=== PATIENT | female | born 2000 | race Caucasian/White ===

== ENCOUNTER 2023-05-22 16:24 | Emergency (ER) | payer SELFPAY ==
[2023-05-22 16:41] VITALS: BP 134/78; PULSE 92; RESP 18; TEMP 98.2; BMI 30.2
[2023-05-22] MEDS ORDERED: ACETAMINOPHEN 1000 MG/100 ML BAG IVPB ONE (17:12)
[2023-05-22] MEDS ORDERED: ONDANSETRON 4 MG/2 ML VIAL IVPUSH ONE (17:12)
[2023-05-22] MEDS ORDERED: SODIUM CHLORIDE 1,000 ML IV STA (17:12)
[2023-05-22] MEDS ORDERED: ACETAMINOPHEN INJECTION 100 ML IVPB ONE (17:38)
[2023-05-22] MEDS ORDERED: ONDANSETRON 4 MG/2 ML VIAL ONE (17:38)
[2023-05-22 17:56] LABS: BASO % 0.9 % (0-2.0); EOS % 0.2 % (0-4.5); HEMATOCRIT 38.8 % (32.4-45.2); LYMPH % 24.9 % (8-40); MCH 29.2 pg (25.7-33.7); MCHC 33.5 g/dl (32.0-36.0); MEAN CELL VOLUME 87.1 fl (80-96); MEAN PLT VOLUME 8.5 fl (7.5-11.1); MONO % 11.8 % (3.8-10.2); NEUT % 62.2 % (42.8-82.8); PLATELET COUNT 317 10^3/uL (134-434); RBC 4.45 M/mm3 (3.60-5.2); RDW 13.5 % (11.6-15.6); WHITE BLOOD COUNT 8.8 K/mm3 (4.0-10.0)
[2023-05-22 18:22] LABS: POTASSIUM 4.1 mmol/L (3.5-5.1)
[2023-05-22 18:24] LABS: CALCIUM 9.9 mg/dL (8.5-10.1)
[2023-05-22 18:25] LABS: BLOOD UREA NITROGEN 13.1 mg/dL (7-18); MAGNESIUM 1.8 mg/dL (1.8-2.4)
[2023-05-22 18:29] LABS: BILIRUBIN,TOTAL 0.2 mg/dL (0.2-1)
[2023-05-22 18:31] LABS: URINE APPEARANCE CLOUDY; URINE BILIRUBIN NEGATIVE (NEGATIVE); URINE COLOR YELLOW; URINE GLUCOSE (UA) NEGATIVE (NEGATIVE); URINE KETONE TRACE (NEGATIVE); URINE LEUK ESTERASE NEGATIVE (NEGATIVE); URINE NITRITE NEGATIVE (NEGATIVE); URINE PROTEIN TRACE (NEGATIVE); URINE UROBILINOGEN 0.2 mg/dL (0.2-1.0)
[2023-05-22] MEDS ORDERED: CEPHALEXIN MONOHYDRATE 500 MG CAPSULE (UD) PO ONE (21:32)
[2023-05-22] MEDS ORDERED: CEPHALEXIN MONOHYDRATE 500 MG CAPSULE (UD) ONE (21:35)
[2023-05-22] MEDS ORDERED: TAMSULOSIN HCL 0.4 MG CAP PO ONE (21:41)
[2023-05-22] MEDS ORDERED: TAMSULOSIN HCL 0.4 MG CAP ONE (21:46)
== END 2023-05-22 21:51 | disposition home or self-care (01) ==
LOC: JER 16:24
PROC: 3E033NZ Introduction of Analgesics, Hypnotics, Sedatives into Peripheral Vein, Percutaneous Approach (ICD-10-PCS; principal; 2023-05-22)
PROC: 3E033GC Introduction of Other Therapeutic Substance into Peripheral Vein, Percutaneous Approach (ICD-10-PCS; 2023-05-22)
PROC: 3E0337Z Introduction of Electrolytic and Water Balance Substance into Peripheral Vein, Percutaneous Approach (ICD-10-PCS; 2023-05-22)
DX: M54.50 Low back pain, unspecified (principal); R11.2 Nausea with vomiting, unspecified; N20.0 Calculus of kidney; Z20.822 Contact with and (suspected) exposure to COVID-19
CPT/HCPCS: 0241U-QW; 36415; 74176-TC; 80053; 81003; 83690; 83735; 84703; 85025; 87086; 99284-25